=== PATIENT | male | born 1995 | race American Indian/Alaskan Native ===

== ENCOUNTER 2018-08-27 15:40 | Emergency (ER) | payer OTHER ==
[2018-08-27 15:51] VITALS: BP 123/75
[2018-08-27] MEDS ORDERED: ATIVAN PO ONE (16:44)
--- NOTE | 2018-08-27 16:45 | Emergency Department Report ---
HPI - General Chief Complaint: Anxiety Time Seen by Provider: 08/27/18 16:25 - HPI HPI: Patient is a 23-year-old male who presents ED today complaining of a series of symptoms which started while he was at work today with headache and then feeling like there is are not on the right side of his chest. Patient states that this started earlier this morning while he was at work. Patient denies any history of any medical conditions or taking any medications. He describes pain as a knot-like sensation like a tightness sensation localized to the right side of the chest. He denies fevers/chills/chest pain/shortness of breath/nausea vomiting/trauma or injuries ED Past Medical Hx - Past Medical History Previous Medical History?: No - Surgical History Past Surgical History?: No - Social History Smoking Status: Never Smoker Substance Use Type: None - Medications Home Medications: Home Medications Medication Instructions Recorded Confirmed Last Taken Type Butalb/Acetamin/Caff 50-325-40 1 tab PO Q8HR PRN #20 tablet 08/27/18 Unknown Rx [Fioricet] ED Review of Systems ROS: Stated complaint: RT SIDE CHEST PAIN Other details as noted in HPI Comment: All other systems reviewed and negative Physical Exam - Physical Exam Vital Signs: Vital Signs 08/27/18 15:49 Temperature 99.6 F Pulse Rate 100 H Respiratory 16 Rate Blood Pressure 123/75 O2 Sat by Pulse 100 Oximetry Physical Exam: GENERAL: Alert and oriented x3, no apparent distress, Normal Gait, atraumatic. HEAD: Head is normocephalic and a-traumatic. EYES: Extra ocular muscles are intact. Pupils are equal, round, and reactive to light and accommodation. LUNGS: Symetrical with respiration, No wheezing, no rales or crackles, CTAB. HEART: S1, S2 present, regular rate and rhythm without murmur, no rubs, no gallops. Non tender to palpation ABDOMEN: No organomegaly was noted,Positive bowel sounds, soft, and non- distended. . Nontender to palpation on all Quadrants, NO CVA tenderness. BACK: Full range of motion, no spinal tenderness, nontender to palpation. NEURO: No neurological deficit observed. Patient speaking in clear sentences, SKIN: Warm and dry, No lesions, No ulceration or induration present. ED Course Vital Signs 08/27/18 15:49 Temperature 99.6 F Pulse Rate 100 H Respiratory 16 Rate Blood Pressure 123/75 O2 Sat by Pulse 100 Oximetry ED Medical Decision Making - Lab Data Result diagrams: 08/27/18 17:32 08/27/18 17:32 - Radiology Data Radiology results: report reviewed, image reviewed FINAL REPORT EXAM: XR CHEST ROUTINE 2V HISTORY: cp TECHNIQUE: PA and lateral views of the chest Comparison: None FINDINGS: There is no evidence of infiltrate, pneumothorax or pleural fluid collection. The cardiomediastinal silhouette is normal in appearance. The bony structures are unremarkable. IMPRESSION: 1. Normal study. Transcribed By: ED Dictated By: FLETCHER CAM MD Electronically Authenticated By: FLETCHER CAM MD Signed Date/Time: 08/27/18 7549 - Medical Decision Making This 23-year-old male presents with acute tension headache CBC, BMP, chest x-ray shows no acute findings. Discussed findings with the patient and his family members which are present in the room. Discussed increased saturation. 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 Discussed proper hydration. Vital signs are normal patient has not acute distress he has no neuro deficits he was feeling much better. Critical care attestation.: If time is entered above; I have spent that time in minutes in the direct care of this critically ill patient, excluding procedure time. ED Disposition Clinical Impression: Acute tension headache Disposition: [id number] TO HOME OR SELFCARE Is pt being admited?: No Does the pt Need Aspirin: No Condition: Stable Instructions: Stress (ED), Panic Disorder (ED), Tension Headache (ED) Additional Instructions: Make sure to follow up with the primary care physician at [facility] as discussed. Take all your medications as you've been prescribed. If you have any worsening symptoms or develop new symptoms please return to ED immediately. Prescriptions: Butalb/Acetamin/Caff 50-325-40 [Fioricet] 1 tab PO Q8HR PRN #20 tablet PRN Reason: Headache Referrals: [facility] [Provider Group] - 3-5 Days Forms: Accompanied Note, Work/School Release Form(ED) Time of Disposition: 18:11
--- NOTE | 2018-08-27 17:18 | XRay Report ---
FINAL REPORT EXAM: XR CHEST ROUTINE 2V HISTORY: cp TECHNIQUE: PA and lateral views of the chest Comparison: None FINDINGS: There is no evidence of infiltrate, pneumothorax or pleural fluid collection. The cardiomediastinal silhouette is normal in appearance. The bony structures are unremarkable. IMPRESSION: 1. Normal study.
[2018-08-27 17:41] LABS: Hematocrit 42.1 % (35.5-45.6); Mean Corpuscular HGB Conc 33 % (32-34); Mean Corpuscular Volume 88 fl (84-94); Platelet Count 237 K/mm3 (140-440); Red Blood Count 4.76 M/mm3 (3.65-5.03); Red Cell Distribution Width 13.3 % (13.2-15.2)
[2018-08-27 17:52] LABS: BUN/Creatinine Ratio 8; Blood Urea Nitrogen 8 mg/dL (9-20); Calcium 9.2 mg/dL (8.4-10.2); Hemolysis Index 3
== END 2018-08-27 18:45 | disposition home or self-care (01) ==
LOC: ED 15:40
DX: G44.209 Tension-type headache, unspecified, not intractable (principal)
CPT/HCPCS: 36415; 71046; 80048; 85027; 99284